=== PATIENT | male | born 1945 | race Caucasian/White ===

== ENCOUNTER 2018-04-08 10:41 | Day surgery (SDC) | payer MEDICARE ==
[2018-04-08] MEDS ORDERED: CEFTRIAXONE 1 GM/NS 50 ML IVPB (11:00)
[2018-04-08] MEDS ORDERED: GLYCOPYRROLATE 0.4 MG INJ (12:25)
[2018-04-08] MEDS ORDERED: NEOSTIGMINE 3 MG/3 ML SYRINGE (12:25)
[2018-04-08] MEDS ORDERED: PROPOFOL 20 ML (12:25)
[2018-04-08] MEDS ORDERED: SUCCINYLCHOLINE CHLORIDE 100 MG/5 ML SYG IV (12:25)
[2018-04-08] MEDS ORDERED: ROCURONIUM 50 MG INJ (12:25)
[2018-04-08] MEDS ORDERED: LIDOCAINE 2% (SDV) 5 ML INJ (12:25)
[2018-04-08] MEDS ORDERED: MEPERIDINE 100 MG INJ (12:26)
[2018-04-08] MEDS ORDERED: HYDROCODONE/APAP (5/325) TAB PO (14:30)
[2018-04-08] MEDS ORDERED: HYDROmorphONE 1 MG/5 ML IV SYRINGE IV ×3 (14:48→15:00)
[2018-04-08] MEDS ORDERED: OXYCODONE/ACETAMINOPHEN (5/325) TAB PO ×2 (15:00)
[2018-04-08] MEDS ORDERED: METOCLOPRAMIDE 10 MG INJ IV (15:00)
[2018-04-08] MEDS ORDERED: DIPHENHYDRAMINE 50 MG INJ IV (15:00)
[2018-04-08] MEDS ORDERED: LABETALOL HCL 20MG INJ IV (15:00)
[2018-04-08] MEDS ORDERED: MIDAZOLAM 1 MG/ML 2 ML INJ IV (15:00)
[2018-04-08] MEDS ORDERED: EPHEDrine SULFATE 50 MG/5 ML SYG IV (15:00)
[2018-04-08] MEDS ORDERED: MEPERIDINE 25 MG INJ IV (15:00)
[2018-04-08] MEDS ORDERED: FENTAnyl 50 MCG/ML VIAL IV ×3 (15:00)
[2018-04-08] MEDS ORDERED: hydrALAzine 20 MG INJ IV (15:00)
[2018-04-08] MEDS ORDERED: ONDANSETRON 4 MG INJ IV (15:00)
[2018-04-08] MEDS: HYDROmorphONE 1 MG/5 ML IV SYRINGE IV (15:15)
== END 2018-04-08 18:00 | disposition home or self-care (01) ==
LOC: SDS 10:41
DX: N21.0 Calculus in bladder (principal); E11.9 Type 2 diabetes mellitus without complications; I10 Essential (primary) hypertension
CPT/HCPCS: 52318; 82962; 87086; 88300